=== PATIENT | male | born 1985 | race Caucasian/White ===

== ENCOUNTER → 2016-12-29 | Outpatient (REF) ==
[~2016-12-29] MED LIST: ACTOPLUS MET 851 TAB PO; ALBUTEROL0.83 MG/ML IH; ALEVE 220MG220 MG PO; ASPIRIN 81M81 MG/TA2 PO; BENICAR 20MG TA20 MG PO; BENICAR HCT 12.1 TA1 PO; CELEXA 20MG20 MG/TAB PO; EMERGEN-C 1,01000 MG PO; FLEXERIL 1010 MG/TAB PO; GLUCOPHAGE850 MG/TAB PO; LANTUS SOLOS100 U/ML SC; MULTI VITAMINS1 TAB PO; MULTIBETIC PO; NORCO 325 MG-51 TAB PO; NORCO 325 MG-7.1 TAB PO; PERCOCET 650 MG1 TAB PO; PHENERGAN 25 TA25 MG PO; PRILOSEC 20MG20 MG PO; PRINZIDE 12.5 M1 TA1 PO; PROAIR HFA0.09 MG/AC IH; SINGULAIR 110 MG/TAB PO; TESSALON P100 MG/CAP PO; THERAGRAN1 TA1 PO; TOPROL XL 50MG50 MG PO; TUSSICAPS 8 MG-1 CER PO; TYLENOL 325MG325 MG PO; VICODIN; VOLTAREN 75 DR75 MG PO; ZESTRIL 20MG TA20 MG PO; ZITHROMAX Z PA250 MG PO; ZOFRAN8 MG PO; ZYRTEC 10MG10 MG PO; [UNRECOGNIZED DRUG - OTHER] PO
== END ==
LOC: ZLAB.WCH 15:02
DX: Z01.89 Encounter for other specified special examinations (principal)

== ENCOUNTER 2016-12-31 10:31 | Emergency (ER) | payer OTHER ==
[~2016-12-31] VITALS: Ht 177.8 cm; Wt 118.2 kg
[~2016-12-31 10:31] MED LIST changes: -ALBUTEROL0.83 MG/ML IH; -BENICAR HCT 12.1 TA1 PO; -EMERGEN-C 1,01000 MG PO; -PROAIR HFA0.09 MG/AC IH; -TESSALON P100 MG/CAP PO; -TOPROL XL 50MG50 MG PO; -TUSSICAPS 8 MG-1 CER PO; -ZITHROMAX Z PA250 MG PO; -ZOFRAN8 MG PO
[2016-12-31 10:42] VITALS: TEMP 98.7
[2016-12-31 11:55] LABS: BASO # 0.1 (0.0-0.2); BASO % 0.6 % (0.0-2.0); EOS # 0.4 (0.0-0.7); EOS % 3.9 % (0-4.0); GRAN # 6.2 (1.4-6.5); GRAN % 63.9 % (42.2-75.2); HEMATOCRIT 39.8 % (42.0-52.0); HEMOGLOBIN 13.3 g/dl (13.5-18.0); LYMPH # 2.4 (1.2-3.4); LYMPH % 24.7 % (20.0-51.0); MEAN CELL VOLUME 92 fl (80.0-100.0); MEAN CORPUSCULAR HEMOGLOBIN 31 pg (27.0-31.0); MEAN CORPUSCULAR HGB CONC 33 g/dl (33.0-37.0); MEAN PLATELET VOLUME 9.7 fl (7.4-10.4); MONO # 0.6 (0.1-0.6); MONO % 6.5 % (1.7-9.3); PLATELET COUNT 284 K/mm3 (130-400); RED BLOOD COUNT 4.33 M/mm3 (4.20-5.60); REDCELL DISTRIBUTION WIDTH-CV 11.9 % (11.5-14.5); WHITE BLOOD COUNT 9.7 K/mm3 (4.8-10.8)
[2016-12-31] MEDS ORDERED: ALBUTEROL0.83 MG/ML IH (11:55)
[2016-12-31] MEDS ORDERED: PROAIR HFA0.09 MG/AC IH (11:56)
[2016-12-31] MEDS ORDERED: EMERGEN-C 1,01000 MG PO (11:57)
[2016-12-31 11:58] LABS: CALCIUM 9.2 mg/dL (8.4-10.2); CREATININE, serum 0.74 mg/dL (0.66-1.25); POTASSIUM 4.2 mmol/L (3.4-5.0)
[2016-12-31] MEDS ORDERED: TESSALON P100 MG/CAP PO (11:59)
[2016-12-31] MEDS ORDERED: TUSSICAPS 8 MG-1 CER PO (12:00)
[2016-12-31] MEDS ORDERED: ZOFRAN8 MG PO (12:01)
[2016-12-31] MEDS ORDERED: ZITHROMAX Z PA250 MG PO (12:01)
[2016-12-31] MEDS ORDERED: NORCO 325 MG-51 TAB PO (12:02)
[2016-12-31] MEDS ORDERED: BENICAR HCT 12.1 TA1 PO (12:04)
[2016-12-31] MEDS ORDERED: TOPROL XL 50MG50 MG PO (12:04)
[2016-12-31 14:05] VITALS: BP 148/96; PULSE 87
== END 2016-12-31 14:05 | disposition home or self-care (01) ==
LOC: COL.ER 10:31
PROVIDERS: Emergency Medicine
DX: R51 Headache (principal); I10 Essential (primary) hypertension
CPT/HCPCS: J1885

== ENCOUNTER → 2017-03-17 | Outpatient (REF) ==
[~2017-03-17] MED LIST changes: +ALBUTEROL0.83 MG/ML IH; +BENICAR HCT 12.1 TA1 PO; +EMERGEN-C 1,01000 MG PO; +PROAIR HFA0.09 MG/AC IH; +TESSALON P100 MG/CAP PO; +TOPROL XL 50MG50 MG PO; +TUSSICAPS 8 MG-1 CER PO; +ZITHROMAX Z PA250 MG PO; +ZOFRAN8 MG PO
== END ==
LOC: ZLAB.WCH 18:03
DX: Z01.89 Encounter for other specified special examinations (principal)

== ENCOUNTER → 2017-03-31 | Outpatient (REF) | LOC: ZLAB.WCH 18:09 | DX: Z01.89 Encounter for other specified special examinations (principal) ==

== ENCOUNTER → 2017-11-07 | Outpatient (REF) | LOC: ZLAB.WCH 08:35 | DX: Z01.89 Encounter for other specified special examinations (principal) ==

== ENCOUNTER → 2018-06-17 | Outpatient (REF) | LOC: ZLAB.WCH 11:48 | DX: Z01.89 Encounter for other specified special examinations (principal) ==

== ENCOUNTER → 2018-09-29 | Outpatient (REF) | LOC: ZLAB.WCH 16:24 | DX: Z01.89 Encounter for other specified special examinations (principal) ==

== ENCOUNTER 2018-11-06 06:05 | Emergency (ER) | payer BC ==
[~2018-11-06] VITALS: Ht 177.8 cm; Wt 154.5 kg
[2018-11-06 06:12] VITALS: TEMP 97.9
[2018-11-06 06:27] LABS: COLLECTION METHOD CLEAN CATCH
[2018-11-06 06:33] LABS: PH 6 (5-8); SQUAMOUS EPITHELIAL None Seen /hpf; URINE APPEARANCE Clear; URINE BACTERIA None Seen /hpf; URINE BILIRUBIN Negative (NEGATIVE); URINE BLOOD Negative (NEGATIVE); URINE COLOR Straw; URINE GLUCOSE 3+ (NEGATIVE); URINE KETONE Trace (NEGATIVE); URINE LEUKOCYTE ESTERASE Negative (NEGATIVE); URINE NITRATE Negative (NEGATIVE); URINE PROTEIN(semi-quant) Negative (NEGATIVE); URINE RBC 0-2 /hpf; URINE UROBILINOGEN Negative (NEGATIVE)
[2018-11-06 06:39] LABS: BASO # 0.1 (0.0-0.2); BASO % 0.7 % (0.0-2.0); EOS # 0.3 (0.0-0.7); GRAN # 5.4 (1.4-6.5); GRAN % 62.6 % (42.2-75.2); HEMATOCRIT 46.3 % (42.0-52.0); HEMOGLOBIN 15.9 g/dl (13.5-18.0); LYMPH # 2.2 (1.2-3.4); LYMPH % 25.1 % (20.0-51.0); MEAN CELL VOLUME 90 fl (80.0-100.0); MEAN CORPUSCULAR HEMOGLOBIN 31 pg (27.0-31.0); MEAN CORPUSCULAR HGB CONC 34 g/dl (33.0-37.0); MEAN PLATELET VOLUME 9.8 fl (7.4-10.4); MONO # 0.6 (0.1-0.6); MONO % 7.3 % (1.7-9.3); PLATELET COUNT 263 K/mm3 (130-400); RED BLOOD COUNT 5.13 M/mm3 (4.20-5.60); REDCELL DISTRIBUTION WIDTH-CV 11.5 % (11.5-14.5)
[2018-11-06 06:51] LABS: ALBUMIN 4.3 gm/dL (3.5-5.0); BILIRUBIN,TOTAL 0.6 mg/dL (0.0-1.0); C-REACTIVE PROTEIN 1.3 mg/dL (0.0-0.9); CALCIUM 9.6 mg/dL (8.4-10.2); CREATININE, serum 0.75 mg/dL (0.66-1.25); POTASSIUM 4.5 mmol/L (3.4-5.0)
[2018-11-06] MEDS ORDERED: CATAPRES 0.1MG0.1 MG PO (08:50)
[2018-11-06] MEDS ORDERED: GLUCOPHAGE500 MG/TAB PO (08:50)
[2018-11-06] MEDS ORDERED: ZOCOR 10MG10 MG PO (08:50)
[2018-11-06] MEDS ORDERED: VENLAFAXINE225 MG PO (08:51)
[2018-11-06] MEDS ORDERED: BENICAR HCT 251 TAB PO (08:51)
[2018-11-06] MEDS ORDERED: JARDIANCE10 (08:51)
[2018-11-06] MEDS ORDERED: IMITREX100 MG PO (08:53)
[2018-11-06] MEDS ORDERED: PRILOSEC 20MG20 MG PO (08:53)
[2018-11-06] MEDS ORDERED: LANTUS100 U/ML SQ ×2 (08:55→08:56)
[2018-11-06 09:35] VITALS: BP 130/70; PULSE 86
== END 2018-11-06 09:37 | disposition home or self-care (01) ==
LOC: COL.ER 06:05
PROVIDERS: Emergency Medicine
DX: R10.9 Unspecified abdominal pain (principal); E11.9 Type 2 diabetes mellitus without complications; I10 Essential (primary) hypertension; Z90.49 Acquired absence of other specified parts of digestive tract; Z79.4 Long term (current) use of insulin
CPT/HCPCS: J1170; J1885; J2405; J2550; J7030; Q9967

== ENCOUNTER → 2018-12-01 | Outpatient (REF) ==
[~2018-12-01] MED LIST changes: +BENICAR HCT 251 TAB PO; +CATAPRES 0.1MG0.1 MG PO; +GLUCOPHAGE500 MG/TAB PO; +IMITREX100 MG PO; +JARDIANCE10; +LANTUS100 U/ML SQ; +VENLAFAXINE225 MG PO; +ZOCOR 10MG10 MG PO
== END ==
LOC: ZLAB.WCH 15:49
DX: Z01.89 Encounter for other specified special examinations (principal)

== ENCOUNTER → 2018-12-28 | Outpatient (CLI) | payer BC | LOC: COL.RAD 11:15 | DX: R51 Headache (principal) | CPT/HCPCS: Q9967 ==

== ENCOUNTER 2019-06-22 09:02 | Emergency (ER) | payer BC ==
[~2019-06-22] VITALS: Ht 177.8 cm; Wt 143.2 kg
[~2019-06-22 09:02] MED LIST changes: +CIPRO 500MG TA500 MG PO; -JARDIANCE10; +JARDIANCE10 PO; +OZEMPIC0.25 MG/0.
[2019-06-22 09:24] VITALS: TEMP 98.5
[2019-06-22 11:27] LABS: BASO % 0.4 % (0.0-2.0); EOS # 0.4 (0.0-0.7); EOS % 3.5 % (0-4.0); GRAN # 7.6 (1.4-6.5); HEMATOCRIT 45.2 % (42.0-52.0); HEMOGLOBIN 15.2 g/dl (13.5-18.0); LYMPH # 2.4 (1.2-3.4); LYMPH % 21.1 % (20.0-51.0); MEAN CELL VOLUME 93 fl (80.0-100.0); MEAN CORPUSCULAR HEMOGLOBIN 31 pg (27.0-31.0); MEAN CORPUSCULAR HGB CONC 34 g/dl (33.0-37.0); MEAN PLATELET VOLUME 9.3 fl (7.4-10.4); MONO # 0.8 (0.1-0.6); MONO % 7.4 % (1.7-9.3); PLATELET COUNT 250 K/mm3 (130-400); RED BLOOD COUNT 4.85 M/mm3 (4.20-5.60)
[2019-06-22 11:43] LABS: ALBUMIN 3.9 gm/dL (3.5-5.0); BILIRUBIN,TOTAL 0.8 mg/dL (0.0-1.0); C-REACTIVE PROTEIN 3.4 mg/dL (0.0-0.9); CREATININE, serum 0.74 (0.66-1.25); POTASSIUM 4.2 mmol/L (3.4-5.0); TOTAL PROTEIN 7.2 gm/dL (6.4-8.2)
[2019-06-22 12:57] LABS: COLLECTION METHOD CLEAN CATCH
[2019-06-22 13:07] LABS: PH 6 (5-8); SQUAMOUS EPITHELIAL 0-2 /hpf; URINE APPEARANCE Clear; URINE BACTERIA None Seen /hpf; URINE BILIRUBIN Negative (NEGATIVE); URINE BLOOD Negative (NEGATIVE); URINE COLOR Yellow; URINE GLUCOSE 3+ (NEGATIVE); URINE KETONE 1+ (NEGATIVE); URINE LEUKOCYTE ESTERASE Negative (NEGATIVE); URINE NITRATE Negative (NEGATIVE); URINE PROTEIN(semi-quant) Negative (NEGATIVE); URINE RBC None Seen /hpf; URINE UROBILINOGEN Negative (NEGATIVE)
[2019-06-22 15:00] VITALS: BP 116/38; PULSE 94
== END 2019-06-22 15:00 | disposition short-term general hospital (02) ==
LOC: COL.ER 09:02
PROVIDERS: Family Medicine
DX: M54.16 Radiculopathy, lumbar region (principal); I10 Essential (primary) hypertension; E11.9 Type 2 diabetes mellitus without complications; Z79.4 Long term (current) use of insulin
CPT/HCPCS: J1170; J2270; J2360; J2550

== ENCOUNTER 2019-07-18 09:21 | Emergency (ER) | payer BC ==
[~2019-07-18] VITALS: Ht 177.8 cm; Wt 143.2 kg
[2019-07-18 09:24] VITALS: TEMP 98.5
[2019-07-18] MEDS ORDERED: PAMELOR50 MG PO (09:51)
[2019-07-18] MEDS ORDERED: NEURONTIN600 MG/TAB PO (09:51)
[2019-07-18] MEDS ORDERED: NOVOLIN R100 U/ML (09:52)
[2019-07-18] MEDS ORDERED: CYMBALTA 30MG30 MG (09:52)
[2019-07-18 10:18] LABS: BASO # 0.1 (0.0-0.2); BASO % 0.5 % (0.0-2.0); EOS # 0.5 (0.0-0.7); EOS % 4.8 % (0-4.0); GRAN # 6.4 (1.4-6.5); GRAN % 63.4 % (42.2-75.2); HEMATOCRIT 46.6 % (42.0-52.0); HEMOGLOBIN 15.7 g/dl (13.5-18.0); LYMPH # 2.3 (1.2-3.4); LYMPH % 22.9 % (20.0-51.0); MEAN CELL VOLUME 93 fl (80.0-100.0); MEAN CORPUSCULAR HEMOGLOBIN 31 pg (27.0-31.0); MEAN CORPUSCULAR HGB CONC 34 g/dl (33.0-37.0); MEAN PLATELET VOLUME 9.6 fl (7.4-10.4); MONO # 0.8 (0.1-0.6); MONO % 7.9 % (1.7-9.3); PLATELET COUNT 331 K/mm3 (130-400); RED BLOOD COUNT 5.02 M/mm3 (4.20-5.60); REDCELL DISTRIBUTION WIDTH-CV 11.9 % (11.5-14.5)
[2019-07-18 10:28] LABS: ALBUMIN 4.4 gm/dL (3.5-5.0); BILIRUBIN,TOTAL 0.4 mg/dL (0.0-1.0); C-REACTIVE PROTEIN 1.5 mg/dL (0.0-0.9); CALCIUM 9.5 mg/dL (8.4-10.2); CREATININE, serum 0.78 (0.66-1.25); POTASSIUM 4.2 mmol/L (3.4-5.0); TOTAL PROTEIN 7.9 gm/dL (6.4-8.2)
[2019-07-18] MEDS ORDERED: NORCO 325 MG-7.1 TAB PO (12:06)
[2019-07-18] MEDS ORDERED: MEDROL 4MG DOSPA4 MG PO (12:06)
[2019-07-18 13:20] VITALS: BP 109/80; PULSE 111
[2019-07-18] MEDS ORDERED: LIDODERM 5% PATC1 EA TP (13:22)
== END 2019-07-18 13:22 | disposition home or self-care (01) ==
LOC: COL.ER 09:21
PROVIDERS: Physician Assistant
DX: M54.42 Lumbago with sciatica, left side (principal); M54.16 Radiculopathy, lumbar region; G89.29 Other chronic pain; E11.9 Type 2 diabetes mellitus without complications; I10 Essential (primary) hypertension; Z79.4 Long term (current) use of insulin; Z98.890 Other specified postprocedural states; W18.30XA Fall on same level, unspecified, initial encounter
CPT/HCPCS: J1100; J2060; J2270; J2405; J3360

== ENCOUNTER 2019-07-24 18:35 | Emergency (ER) | payer BC ==
[~2019-07-24] VITALS: Ht 177.8 cm; Wt 143.2 kg
[~2019-07-24 18:35] MED LIST changes: +CYMBALTA 30MG30 MG; +LIDODERM 5% PATC1 EA TP; +MEDROL 4MG DOSPA4 MG PO; +NEURONTIN600 MG/TAB PO; +NOVOLIN R100 U/ML; +PAMELOR50 MG PO
[2019-07-24 18:40] VITALS: TEMP 98.4
[2019-07-24 20:21] LABS: HEMATOCRIT 48.6 % (42.0-52.0); HEMOGLOBIN 16.2 g/dl (13.5-18.0); MEAN CELL VOLUME 94 fl (80.0-100.0); MEAN CORPUSCULAR HEMOGLOBIN 31 pg (27.0-31.0); MEAN CORPUSCULAR HGB CONC 33 g/dl (33.0-37.0); MEAN PLATELET VOLUME 9.6 fl (7.4-10.4); PLATELET COUNT 333 K/mm3 (130-400); REDCELL DISTRIBUTION WIDTH-CV 12.1 % (11.5-14.5)
[2019-07-24 20:28] LABS: ALBUMIN 4.5 gm/dL (3.5-5.0); BILIRUBIN,TOTAL 0.3 mg/dL (0.0-1.0); CALCIUM 9.2 mg/dL (8.4-10.2); CREATININE, serum 0.9 (0.66-1.25); POTASSIUM 4.3 mmol/L (3.4-5.0)
[2019-07-24 21:10] LABS: BAND 4 % (0-10); METAMYELOCYTE 1 % (0-0); NEUTROPHILS 65 % (42.0-75.2)
[2019-07-24 21:11] LABS: ANISOCYTOSIS 1+; LYMPHOCYTE 25 % (20.0-51.0)
[2019-07-24 21:47] LABS: BASO # 0.1 (0.0-0.2); BASO % 0.5 % (0.0-2.0); EOS # 0.2 (0.0-0.7); EOS % 1.1 % (0-4.0); GRAN # 13.1 (1.4-6.5); GRAN % 69.6 % (42.2-75.2); HEMATOCRIT 45.8 % (42.0-52.0); HEMOGLOBIN 15.6 g/dl (13.5-18.0); LYMPH # 3.9 (1.2-3.4); LYMPH % 20.8 % (20.0-51.0); MEAN CELL VOLUME 93 fl (80.0-100.0); MEAN CORPUSCULAR HEMOGLOBIN 32 pg (27.0-31.0); MEAN CORPUSCULAR HGB CONC 34 g/dl (33.0-37.0); MEAN PLATELET VOLUME 9.6 fl (7.4-10.4); MONO # 1.2 (0.1-0.6); MONO % 6.4 % (1.7-9.3); PLATELET COUNT 320 K/mm3 (130-400); RED BLOOD COUNT 4.94 M/mm3 (4.20-5.60); REDCELL DISTRIBUTION WIDTH-CV 12.1 % (11.5-14.5)
[2019-07-24 22:53] VITALS: BP 115/82; PULSE 106
== END 2019-07-24 22:53 | disposition home or self-care (01) ==
LOC: COL.ER 18:35
PROVIDERS: Family Medicine
DX: S20.212A Contusion of left front wall of thorax, initial encounter (principal); G89.29 Other chronic pain; M54.5 Low back pain; E11.9 Type 2 diabetes mellitus without complications; I10 Essential (primary) hypertension; Z79.4 Long term (current) use of insulin; W19.XXXA Unspecified fall, initial encounter
CPT/HCPCS: J1170; J1200; J1630; J1885; J2060

== ENCOUNTER 2019-11-15 11:05 | Emergency (ER) | payer BC ==
[~2019-11-15] VITALS: Ht 177.8 cm; Wt 145.5 kg
[2019-11-15 11:11] VITALS: TEMP 98.6
[2019-11-15 12:05] LABS: BASO # 0.1 (0.0-0.2); BASO % 0.6 % (0.0-2.0); EOS # 0.2 (0.0-0.7); EOS % 1.7 % (0-4.0); HEMATOCRIT 47.6 % (42.0-52.0); HEMOGLOBIN 16.1 g/dl (13.5-18.0); LYMPH # 2.4 (1.2-3.4); LYMPH % 20.6 % (20.0-51.0); MEAN CELL VOLUME 92 fl (80.0-100.0); MEAN CORPUSCULAR HEMOGLOBIN 31 pg (27.0-31.0); MEAN CORPUSCULAR HGB CONC 34 g/dl (33.0-37.0); MEAN PLATELET VOLUME 9.6 fl (7.4-10.4); MONO # 0.8 (0.1-0.6); MONO % 6.8 % (1.7-9.3); PLATELET COUNT 319 K/mm3 (130-400); RED BLOOD COUNT 5.19 M/mm3 (4.20-5.60); REDCELL DISTRIBUTION WIDTH-CV 11.9 % (11.5-14.5)
[2019-11-15 12:19] LABS: ALBUMIN 4.4 gm/dL (3.5-5.0); BILIRUBIN,TOTAL 0.5 mg/dL (0.0-1.0); CALCIUM 9.7 mg/dL (8.4-10.2); CREATININE, serum 0.86 (0.66-1.25); POTASSIUM 4.4 mmol/L (3.4-5.0); TOTAL PROTEIN 7.9 gm/dL (6.4-8.2)
[2019-11-15] MEDS ORDERED: FLEXERIL 1010 MG/TAB PO (13:36)
[2019-11-15 13:59] VITALS: BP 117/79; PULSE 91
== END 2019-11-15 14:02 | disposition home or self-care (01) ==
LOC: COL.ER 11:05
PROVIDERS: Emergency Medicine
DX: M54.5 Low back pain (principal); G89.29 Other chronic pain; E11.9 Type 2 diabetes mellitus without complications; Z79.4 Long term (current) use of insulin; V49.9XXA Car occupant (driver) (passenger) injured in unspecified traffic accident, initial encounter
CPT/HCPCS: J2060; J2270; J2405; Q9967

== ENCOUNTER 2020-02-05 10:16 | Emergency (ER) | payer BC ==
[~2020-02-05] VITALS: Ht 177.8 cm; Wt 145.5 kg
[2020-02-05 10:20] VITALS: TEMP 98.5
[2020-02-05 11:14] LABS: BASO # 0.1 (0.0-0.2); BASO % 0.5 % (0.0-2.0); EOS # 0.2 (0.0-0.7); EOS % 1.8 % (0-4.0); GRAN # 9.3 (1.4-6.5); HEMATOCRIT 47.8 % (42.0-52.0); HEMOGLOBIN 16.1 g/dl (13.5-18.0); LYMPH # 2.3 (1.2-3.4); MEAN CELL VOLUME 91 fl (80.0-100.0); MEAN CORPUSCULAR HEMOGLOBIN 31 pg (27.0-31.0); MEAN CORPUSCULAR HGB CONC 34 g/dl (33.0-37.0); MEAN PLATELET VOLUME 9.6 fl (7.4-10.4); MONO # 0.7 (0.1-0.6); MONO % 5.4 % (1.7-9.3); PLATELET COUNT 334 K/mm3 (130-400); RED BLOOD COUNT 5.23 M/mm3 (4.20-5.60)
[2020-02-05 11:32] LABS: ALBUMIN 4.3 gm/dL (3.5-5.0); BILIRUBIN,TOTAL 0.4 mg/dL (0.0-1.0); CREATININE, serum 0.84 (0.66-1.25); POTASSIUM 4.2 mmol/L (3.4-5.0); TOTAL PROTEIN 7.8 gm/dL (6.4-8.2)
[2020-02-05 11:56] LABS: COLLECTION METHOD CLEAN CATCH
[2020-02-05 12:02] LABS: MUCOUS Present /lpf; PH 5 (5-8); SQUAMOUS EPITHELIAL 0-2 /hpf; URINE APPEARANCE Clear; URINE BACTERIA None Seen /hpf; URINE BILIRUBIN Negative (NEGATIVE); URINE BLOOD Negative (NEGATIVE); URINE COLOR Yellow; URINE GLUCOSE 3+ (NEGATIVE); URINE KETONE Trace (NEGATIVE); URINE LEUKOCYTE ESTERASE Negative (NEGATIVE); URINE NITRATE Negative (NEGATIVE); URINE PROTEIN(semi-quant) Negative (NEGATIVE); URINE RBC None Seen /hpf; URINE UROBILINOGEN Negative (NEGATIVE)
[2020-02-05 12:36] VITALS: BP 130/80; PULSE 102
== END 2020-02-05 12:32 | disposition home or self-care (01) ==
LOC: COL.ER 10:16
PROVIDERS: Emergency Medicine
DX: M54.5 Low back pain (principal); W01.0XXA Fall on same level from slipping, tripping and stumbling without subsequent striking against object, initial encounter
CPT/HCPCS: J1170; J1630; J1815; J1885; J2060; J2930; J7030

== ENCOUNTER 2020-02-27 12:29 | Emergency (ER) | payer BC ==
[~2020-02-27] VITALS: Ht 177.8 cm; Wt 159.1 kg
[2020-02-27 12:35] VITALS: BP 137/91; TEMP 99.4
[2020-02-27 13:52] LABS: BASO % 0.2 % (0.0-2.0); GRAN # 16.5 (1.4-6.5); GRAN % 88.9 % (42.2-75.2); HEMOGLOBIN 15.8 g/dl (13.5-18.0); LYMPH # 1.2 (1.2-3.4); LYMPH % 6.3 % (20.0-51.0); MEAN CELL VOLUME 92 fl (80.0-100.0); MEAN CORPUSCULAR HEMOGLOBIN 31 pg (27.0-31.0); MEAN CORPUSCULAR HGB CONC 34 g/dl (33.0-37.0); MEAN PLATELET VOLUME 9.2 fl (7.4-10.4); MONO # 0.8 (0.1-0.6); MONO % 4.1 % (1.7-9.3); PLATELET COUNT 343 K/mm3 (130-400); RED BLOOD COUNT 5.11 M/mm3 (4.20-5.60); REDCELL DISTRIBUTION WIDTH-CV 12.2 % (11.5-14.5)
[2020-02-27 14:07] LABS: ALBUMIN 4.4 gm/dL (3.5-5.0); BILIRUBIN,TOTAL 0.5 mg/dL (0.0-1.0); C-REACTIVE PROTEIN 0.6 mg/dL (0.0-0.9); CALCIUM 9.8 mg/dL (8.4-10.2); CREATININE, serum 0.69 (0.66-1.25); POTASSIUM 4.2 mmol/L (3.4-5.0)
[2020-02-27 14:30] LABS: ERYTHROCYTE SEDIMENTATION RATE 15 mm/hr (0-15)
[2020-02-27 15:40] VITALS: PULSE 87
== END 2020-02-27 15:40 | disposition home or self-care (01) ==
LOC: COL.ER 12:29
PROVIDERS: Physician Assistant
DX: M54.5 Low back pain (principal); G89.29 Other chronic pain; Z79.4 Long term (current) use of insulin
CPT/HCPCS: J1170; J1885; J2270; J2405

== ENCOUNTER 2020-05-16 12:31 | Emergency (ER) | payer BC ==
[~2020-05-16] VITALS: Ht 177.8 cm; Wt 163.6 kg
[2020-05-16 12:34] VITALS: TEMP 98.9
[2020-05-16 14:02] LABS: BASO # 0.1 (0.0-0.2); BASO % 0.4 % (0.0-2.0); EOS # 0.1 (0.0-0.7); GRAN # 10.2 (1.4-6.5); GRAN % 73.1 % (42.2-75.2); HEMATOCRIT 46.2 % (42.0-52.0); HEMOGLOBIN 15.7 g/dl (13.5-18.0); LYMPH # 2.5 (1.2-3.4); LYMPH % 17.9 % (20.0-51.0); MEAN CELL VOLUME 94 fl (80.0-100.0); MEAN CORPUSCULAR HEMOGLOBIN 32 pg (27.0-31.0); MEAN CORPUSCULAR HGB CONC 34 g/dl (33.0-37.0); MEAN PLATELET VOLUME 9.5 fl (7.4-10.4); PLATELET COUNT 328 K/mm3 (130-400); REDCELL DISTRIBUTION WIDTH-CV 12.3 % (11.5-14.5)
[2020-05-16 14:19] LABS: ALBUMIN 4.1 gm/dL (3.5-5.0); BILIRUBIN,TOTAL 0.5 mg/dL (0.0-1.0); C-REACTIVE PROTEIN 1.2 mg/dL (0.0-0.9); CALCIUM 9.4 mg/dL (8.4-10.2); CREATININE, serum 0.96 (0.66-1.25); POTASSIUM 4.4 mmol/L (3.4-5.0); TOTAL PROTEIN 7.5 gm/dL (6.4-8.2)
[2020-05-16] MEDS ORDERED: PERCOCET 325 MG1 TAB PO (14:50)
[2020-05-16] MEDS ORDERED: PREDNISONE20 MG PO (14:50)
[2020-05-16] MEDS ORDERED: VALIUM 5MG T5 MG/TAB PO (14:50)
[2020-05-16 16:11] VITALS: BP 95/65; PULSE 107
== END 2020-05-16 16:20 | disposition home or self-care (01) ==
LOC: COL.ER 12:31
PROVIDERS: Emergency Medicine
DX: M54.16 Radiculopathy, lumbar region (principal); E11.9 Type 2 diabetes mellitus without complications; Z90.49 Acquired absence of other specified parts of digestive tract; Z79.4 Long term (current) use of insulin
CPT/HCPCS: J3010; J3360; J7030; J7512

== ENCOUNTER 2020-09-30 10:26 | Emergency (ER) | payer BC ==
[~2020-09-30] VITALS: Ht 175.3 cm; Wt 145.5 kg
[~2020-09-30 10:26] MED LIST changes: +PERCOCET 325 MG1 TAB PO; +PREDNISONE20 MG PO; +VALIUM 5MG T5 MG/TAB PO
[2020-09-30 10:47] VITALS: TEMP 97.2
[2020-09-30 13:29] VITALS: BP 140/90; PULSE 103
== END 2020-09-30 13:27 | disposition home or self-care (01) ==
LOC: COL.ER 10:26
DX: G89.29 Other chronic pain (principal); M54.5 Low back pain; M62.838 Other muscle spasm; E11.9 Type 2 diabetes mellitus without complications; F41.9 Anxiety disorder, unspecified; F32.9 Major depressive disorder, single episode, unspecified; Z88.0 Allergy status to penicillin; Z79.4 Long term (current) use of insulin; Z79.52 Long term (current) use of systemic steroids
CPT/HCPCS: J1885

== ENCOUNTER 2021-01-07 16:37 | Emergency (ER) | payer BC ==
[~2021-01-07] VITALS: Ht 177.8 cm; Wt 144.5 kg
[~2021-01-07 16:37] MED LIST changes: -NOVOLIN R100 U/ML; +NOVOLIN R100 U/ML SQ
[2021-01-07 16:46] VITALS: BP 133/92; TEMP 98.3
[2021-01-07 18:56] VITALS: PULSE 92
== END 2021-01-07 18:58 | disposition home or self-care (01) ==
LOC: COL.ER 16:37
DX: G89.29 Other chronic pain (principal); M54.5 Low back pain; M62.838 Other muscle spasm; Z88.0 Allergy status to penicillin; Z79.4 Long term (current) use of insulin
CPT/HCPCS: J1170; J2550

== ENCOUNTER 2021-01-30 13:04 | Emergency (ER) | payer BC ==
[~2021-01-30] VITALS: Ht 177.8 cm; Wt 143.6 kg
[2021-01-30 13:45] LABS: BASO # 0.1 (0.0-0.2); BASO % 0.4 % (0.0-2.0); GRAN # 12.2 (1.4-6.5); GRAN % 88.1 % (42.2-75.2); HEMATOCRIT 51.9 % (42.0-52.0); HEMOGLOBIN 16.9 g/dl (13.5-18.0); LYMPH # 1.1 (1.2-3.4); LYMPH % 7.9 % (20.0-51.0); MEAN CELL VOLUME 96 fl (80.0-100.0); MEAN CORPUSCULAR HEMOGLOBIN 31 pg (27.0-31.0); MEAN CORPUSCULAR HGB CONC 33 g/dl (33.0-37.0); MEAN PLATELET VOLUME 9.7 fl (7.4-10.4); MONO # 0.4 (0.1-0.6); MONO % 3.1 % (1.7-9.3); PLATELET COUNT 301 K/mm3 (130-400); RED BLOOD COUNT 5.39 M/mm3 (4.20-5.60); REDCELL DISTRIBUTION WIDTH-CV 12.5 % (11.5-14.5)
[2021-01-30 14:13] LABS: ERYTHROCYTE SEDIMENTATION RATE 1 mm/hr (0-15)
[2021-01-30 15:28] VITALS: BP 138/96; PULSE 84; TEMP 99.1
== END 2021-01-30 15:33 | disposition home or self-care (01) ==
LOC: COL.ER 13:04
PROVIDERS: Family Medicine
DX: M54.16 Radiculopathy, lumbar region (principal); M62.830 Muscle spasm of back; Z90.49 Acquired absence of other specified parts of digestive tract; Z98.890 Other specified postprocedural states; Z88.0 Allergy status to penicillin; Z79.4 Long term (current) use of insulin
CPT/HCPCS: J1170; J1885; J2930; J7120

== ENCOUNTER 2021-04-10 05:59 | Day surgery (SDC) | payer BC ==
[~2021-04-10] VITALS: Ht 177.8 cm; Wt 163.6 kg
[2021-04-10] MEDS ORDERED: CYMBALTA 60MG60 MG PO (07:10)
[2021-04-10] MEDS ORDERED: VITAMIN B12 681 TAB PO (07:16)
[2021-04-10] MEDS ORDERED: VITAMIND3 5000 PO (07:17)
[2021-04-10] MEDS ORDERED: PROTONIX20 MG PO (07:17)
[2021-04-10] MEDS ORDERED: ZYRTEC 10MG10 MG PO (07:18)
[2021-04-10] MEDS ORDERED: LEXAPRO 10MG10 MG PO (07:19)
[2021-04-10] MEDS ORDERED: LEXAPRO20 MG PO (07:19)
[2021-04-10] MEDS ORDERED: BENICAR5 MG PO (07:20)
[2021-04-10] MEDS ORDERED: FASTIN30 MG PO (07:21)
[2021-04-10 07:28] VITALS: BP 144/97; PULSE 108; TEMP 98.2
[2021-04-10 08:52] VITALS: BP 122/98; PULSE 115
--- NOTE | 2021-04-10 08:52 | NUR ---
Patient returns to room 7 per cart from surgery accompanied by Jeyson PEREA and Candido HAYES. Patient is awake and talking. Right hand and wrist dressing dry and intact. Fingers warm to touch. IV fluids all infused and converted to INT. Room air sats 96%. Siderails up x2 and call light in reach. Allowed to rest. Right arm elevated on pillow.
[2021-04-10 09:07] VITALS: BP 123/81; PULSE 104
--- NOTE | 2021-04-10 09:07 | NUR ---
Drinking diet Sprite. Denies pain or nausea.
[2021-04-10 09:23] VITALS: BP 137/82; PULSE 101
--- NOTE | 2021-04-10 09:23 | NUR ---
Sitting up on the edge of the cart eating toast. Room air sats 97%. IV discontinued and site is free of redness.
--- NOTE | 2021-04-10 09:45 | NUR ---
Dressed self. Dismissal instructions given and voices understanding of these.
--- NOTE | 2021-04-10 09:53 | NUR ---
Patient dismissed to home driven by parents and taken to the front door per wheelchair and assisted into vehicle with instructions in hand.
== END 2021-04-10 09:53 | disposition home or self-care (01) ==
LOC: SDCO 05:59
DX: G56.01 Carpal tunnel syndrome, right upper limb (principal); I10 Essential (primary) hypertension; E78.5 Hyperlipidemia, unspecified; K21.9 Gastro-esophageal reflux disease without esophagitis; G43.909 Migraine, unspecified, not intractable, without status migrainosus; G89.29 Other chronic pain; M54.9 Dorsalgia, unspecified; E11.9 Type 2 diabetes mellitus without complications; F32.9 Major depressive disorder, single episode, unspecified; F41.9 Anxiety disorder, unspecified; Z87.891 Personal history of nicotine dependence; Z79.899 Other long term (current) drug therapy; Z79.4 Long term (current) use of insulin; Z20.822 Contact with and (suspected) exposure to COVID-19
CPT/HCPCS: J0690; J2704; J3010; J7030

== ENCOUNTER 2021-04-23 05:30 | Day surgery (SDC) | payer BC ==
[~2021-04-23] VITALS: Ht 177.8 cm; Wt 162.7 kg
[~2021-04-23 05:30] MED LIST changes: +BENICAR5 MG PO; +CYMBALTA 60MG60 MG PO; +FASTIN30 MG PO; +LEXAPRO 10MG10 MG PO; +LEXAPRO20 MG PO; +PROTONIX20 MG PO; +VITAMIN B12 681 TAB PO; +VITAMIND3 5000 PO
[2021-04-23 06:42] VITALS: BP 142/77; PULSE 101; TEMP 98.1
--- NOTE | 2021-04-23 08:29 | NUR ---
Pt resting with eyes closed on cart in bay 1. Pt was given cool damp wash cloth for face with c/o feeling "warm and stuffy". Pt aware of delay with surgery time as surgeon behind schedule.
--- NOTE | 2021-04-23 09:00 | NUR ---
Pt up to void then taken via cart to OR by BRIT Evans for scheduled surgery. Dr Escamilla in to see pt prior to surgery.
[2021-04-23 09:43] VITALS: BP 107/69; PULSE 107; TEMP 97.2
--- NOTE | 2021-04-23 09:43 | NUR ---
Pt returned from OR via cart to [place] [facility]. Pt slightly drowsy, oriented. VSS-see flowsheet. HOB elevated and pt given sprite zero and crackers per request. Dressing to left hand clean, dry, intact. CMS intact. Side rails up, call light in reach. Denies complaints or needs at this time.
[2021-04-23 09:58] VITALS: BP 116/72; PULSE 98
[2021-04-23 10:13] VITALS: BP 118/74; PULSE 89
[2021-04-23 10:28] VITALS: BP 117/74; PULSE 91
--- NOTE | 2021-04-23 11:10 | NUR ---
Pt tolerated saltines and sprite zero. VS remain stable-see flowsheet. Sat up on side of bed without difficulty. IV removed from right hand and pressure dressing applied. Discharge teaching completed, verbalized understanding. Pt taken via wheelchair to private vehicle for dc home with spouse driving.
== END 2021-04-23 11:10 | disposition home or self-care (01) ==
LOC: SDCO 05:30
DX: G56.02 Carpal tunnel syndrome, left upper limb (principal); I10 Essential (primary) hypertension; F32.9 Major depressive disorder, single episode, unspecified; E11.49 Type 2 diabetes mellitus with other diabetic neurological complication; E78.5 Hyperlipidemia, unspecified; G89.29 Other chronic pain; G43.909 Migraine, unspecified, not intractable, without status migrainosus; F41.9 Anxiety disorder, unspecified
CPT/HCPCS: J0690; J2704; J3010; J7030

== ENCOUNTER 2021-12-10 16:44 | Emergency (ER) | payer BC ==
[~2021-12-10] VITALS: Ht 177.8 cm; Wt 139.5 kg
[2021-12-10 17:08] VITALS: TEMP 98.7
[2021-12-10] MEDS ORDERED: FLEXERIL 1010 MG/TAB PO (18:13)
[2021-12-10] MEDS ORDERED: MEDROL 4MG DOSPA4 MG PO (18:13)
[2021-12-10 18:47] VITALS: BP 118/83; PULSE 94
== END 2021-12-10 18:43 | disposition home or self-care (01) ==
LOC: COL.ER 16:44
DX: G89.29 Other chronic pain (principal); M54.50 Low back pain, unspecified
CPT/HCPCS: J1885; J2360

== ENCOUNTER 2021-12-23 09:34 | Emergency (ER) | payer BC ==
[~2021-12-23] VITALS: Ht 177.8 cm; Wt 136.4 kg
[2021-12-23 09:37] VITALS: TEMP 98.2
[2021-12-23 10:14] LABS: BASO # 0.1 K/mm3 (0.0-0.2); BASO % 0.7 % (0.0-2.0); EOS # 0.3 K/mm3 (0.0-0.7); EOS % 3.3 % (0.0-4.0); GRAN # 6.6 K/mm3 (1.4-6.5); GRAN % 71.3 % (42.2-75.2); HEMATOCRIT 40.3 % (42.0-52.0); LYMPH # 1.6 K/mm3 (1.2-3.4); LYMPH % 17.8 % (20.0-51.0); MEAN CELL VOLUME 91 fl (80.0-100.0); MEAN CORPUSCULAR HEMOGLOBIN 32 pg (27-31); MEAN CORPUSCULAR HGB CONC 35 g/dl (33.0-37.0); MEAN PLATELET VOLUME 9.6 fl (7.4-10.4); MONO # 0.6 K/mm3 (0.1-0.6); MONO % 6.6 % (1.7-9.3); PLATELET COUNT 301 K/mm3 (130-400); RED BLOOD COUNT 4.42 M/mm3 (4.20-5.60); REDCELL DISTRIBUTION WIDTH-CV 11.8 % (11.5-14.5)
[2021-12-23 10:21] LABS: ALBUMIN 3.4 gm/dL (3.5-5.0); BILIRUBIN,TOTAL 0.5 mg/dL (0.2-1.2); CALCIUM 8.6 mg/dL (8.4-10.2); CREATININE, serum 0.8 mg/dL (0.72-1.25); POTASSIUM 4.3 mmol/L (3.5-4.5); TOTAL PROTEIN 6.9 gm/dL (6.2-8.1)
[2021-12-23 11:23] LABS: COLLECTION METHOD CLEAN CATCH
[2021-12-23 11:31] LABS: PH 7 (5-8); URINE APPEARANCE Clear (CLEAR/HAZY); URINE BACTERIA None Seen /hpf (NONE SEEN); URINE BILIRUBIN Negative (NEGATIVE); URINE BLOOD Negative (NEGATIVE); URINE COLOR Yellow (YELLOW); URINE GLUCOSE Negative (NEGATIVE); URINE KETONE Negative (NEGATIVE); URINE LEUKOCYTE ESTERASE Negative (NEGATIVE); URINE NITRATE Negative (NEGATIVE); URINE PROTEIN(semi-quant) Negative (NEGATIVE); URINE RBC 0-2 /hpf (0-2); URINE UROBILINOGEN Negative (NEGATIVE)
[2021-12-23] MEDS ORDERED: ZOFRAN ODT8 MG PO (12:04)
[2021-12-23 12:48] VITALS: BP 135/92; PULSE 91
== END 2021-12-23 12:48 | disposition home or self-care (01) ==
LOC: COL.ER 09:34
PROVIDERS: Emergency Medicine
DX: R05.9 Cough, unspecified (principal)
CPT/HCPCS: J2270; Q9967

== ENCOUNTER 2022-01-27 08:37 | Emergency (ER) | payer BC ==
[~2022-01-27] VITALS: Ht 177.8 cm; Wt 132.7 kg
[~2022-01-27 08:37] MED LIST changes: +ZOFRAN ODT8 MG PO
[2022-01-27 09:28] VITALS: BP 150/104; PULSE 103; TEMP 98.4
== END 2022-01-27 11:10 | disposition left against medical advice (07) ==
LOC: COL.ER 08:37
DX: M54.50 Low back pain, unspecified (principal)